=== PATIENT | female | born 1945 | race Two or more races ===

== ENCOUNTER → 2024-05-29 | Outpatient (CLI) | payer MEDICARE, SELFPAY ==
--- NOTE | 2024-05-29 11:20 | XR_ITS ---
Examination: Lumbar spine 5 views TECHNIQUE: AP, lateral, standing lateral flexion, standing lateral extension, coned lower lumbar spine lateral total 5 views Exam date and time: May 26, 2024 1140 hours INDICATIONS: Lower back pain months, radiating to the legs FINDINGS: Severe osteopenia Mild chronic osteoporotic compressions L2, L1 No acute lumbar fracture Diffuse moderate lumbar degenerative disc disease Marked reduced range of motion between flexion and extension No spondylolisthesis IMPRESSION: No acute lumbar fracture Moderate diffuse lumbar degenerative disc disease
== END | disposition home or self-care (01) ==
PROVIDERS: PCP Physician Assistant; Referring Provider Physical Medicine & Rehabilitation Pain Medicine; Visit Provider Physical Medicine & Rehabilitation Pain Medicine
DX: M51.369 Other intervertebral disc degeneration, lumbar region without mention of lumbar back pain or lower extremity pain (principal)
CPT/HCPCS: 72114

== ENCOUNTER → 2024-06-13 | Outpatient (CLI) | payer MEDICARE, SELFPAY ==
--- NOTE | 2024-06-13 12:30 | XR_ITS ---
Examination: MRI lumbar spine without contrast Date and time of exam: June 13, 2024 1320 hours Comparison August 24, 2021 INDICATIONS: Lower back pain radiating down both legs beginning 4 years ago, worse the last 20 years Technique: Multiple MRI axial and sagittal sections lumbar spine. Sagittal T2-weighted images, TR 3500, TE 118 T1 weighted transverse sections, TR 688 T8.5, T2-weighted sagittal sections T1 weighted sagittal sections TR 621, TE 30 T2 axial sections, TR 4, 190, TE 84. Findings: Chronic osteoporotic compressions L3, mild, L1 T12 moderate Diffuse lumbar disc desiccation No lumbar fracture Grade 1 anterolisthesis L5 on S1 L5-S1 3 mm central lumbar disc bulge L4-L5 5 mm central lumbar disc bulge L3-L4 no disc protrusion L2-L3 no disc protrusion L1-2 no disc protrusion IMPRESSION: L5-S1 3 mm central lumbar disc bulge L4-L5 5 mm central lumbar disc bulge
== END | disposition home or self-care (01) ==
LOC: SMRI 11:58
PROVIDERS: PCP Physician Assistant; Referring Provider Physical Medicine & Rehabilitation Pain Medicine; Visit Provider Physical Medicine & Rehabilitation Pain Medicine
DX: M51.369 Other intervertebral disc degeneration, lumbar region without mention of lumbar back pain or lower extremity pain (principal); M51.379 Other intervertebral disc degeneration, lumbosacral region without mention of lumbar back pain or lower extremity pain
CPT/HCPCS: 72148

== ENCOUNTER → 2024-07-26 | Outpatient (CLI) | payer MEDICARE, SELFPAY ==
--- NOTE | 2024-07-26 13:20 | XR_ITS ---
Examination: Bone densitometry Date and time of exam:July 26, 2024 1226 hours INDICATIONS: Hysterectomy age 31 vitamin D and calcium one year Technique: Lumbar spine and hip total bone mineralization values of an calculated. Peak reference and age match control results have been displayed. Findings: Lumbar spine total bone mineralization is1.060 gm/cm2. This is 0.1 standard deviations above peak reference. This is 2.8 standard deviations above age-matched controls. Hip total bone mineralization is 0.822 gm/cm2 This is 1.0 standard deviations below peak reference. This is 1.0 standard deviations above age-matched controls Impression: There is normal mineralization based on lumbar spine measurements. There is osteopenia based on hip measurements Lumbar mineralization is increased 5.5% compared with May 13, 2020 Hip mineralization is decreased 0.7% compared with May 13, 2020
== END | disposition home or self-care (01) ==
LOC: CDIM 11:45
PROVIDERS: Referring Provider Physician Assistant; Visit Provider Physician Assistant
DX: M85.89 Other specified disorders of bone density and structure, multiple sites (principal)
CPT/HCPCS: 77080

== ENCOUNTER 2024-11-17 13:43 | Emergency (ER) | payer MEDICARE, SELFPAY ==
[2024-11-17 13:44] VITALS: BMI 29.2
--- NOTE | 2024-11-17 13:47 | EKG_ITS ---
[facility] Test Date: 2024-11-17 Pat Name: SEVERIANO BLANKENSHIP Department: Room: - Gender: Female Pediatric Geneticist: : 1945 Requested By: ED Temporary Provider Order Number: [id number] Reading MD: ED Temporary Provider Measurements Intervals [place] Rate: 76 P: 40 UT: 142 QRS: 20 QRSD: 94 T: 19 QT: 291 QTc: 329 Interpretive Statements SINUS RHYTHM NONSPECIFIC T-WAVE ABNORMALITY Compared to ECG 12/28/2023 12:03:04 T-wave abnormality now present Sinus arrhythmia no longer present /store/S0/[id number]/ecg/[id number].pdf
[2024-11-17 13:56] VITALS: BP 130/76; PULSE 78; RESP 20; TEMP 37.4; O2SAT 97
--- NOTE | 2024-11-17 13:59 | XR_ITS ---
Examination: CT brain head without contrast. 2-D sagittal coronal reconstructions Date and time of exam:November 17, 2024 1400 hours INDICATION: Dizziness beginning last night COMPARISON: May 12, 2021 CTDI: vol (mGy):45.8 DLP: (mGycm):949 Technique: Multiple CT axial sections of the brain have been obtained, 5 mm slice thickness. Contrast has not been administered. 2-D sagittal, coronal reconstructions have been obtained Low dose protocols were performed. One or more of the following dose reduction techniques were used; automated exposure control, adjustment of the mA and/or KV according to patient size, use of iterative reconstruction technique. Findings: No significant ventricular enlargement. Intra-axial or extra-axial hemorrhage density is not seen. No mass effect or midline shift Basal cisterns are not remarkable. Fourth ventricle is midline. Cranial vault intact. Impression: Negative for acute hemorrhage, mass effect or midline shift Advise clinical correlation and follow up accordingly
--- NOTE | 2024-11-17 14:00 | EDRME_ITS ---
Rapid Medical Screening Exam [facility] Arrival date/time: 11/17/24 13:43 79-year-old female with positive sick contacts at home presents with concerns for headache, dizziness, weakness, nausea and vomiting Chief Complaint: Dizziness Vital signs: Vital Signs Temperature 99.3 F 11/17/24 13:56 Pulse Rate 78 11/17/24 13:56 Respiratory Rate 20 11/17/24 13:56 Blood Pressure 130/76 11/17/24 13:56 Pulse Oximetry (%) 97 11/17/24 13:56 Oxygen Delivery Method Room Air 11/17/24 13:56
[2024-11-17] MEDS: ONDANSETRON ODT 4 MG TABRAP PO (14:04)
[2024-11-17] MEDS: MECLIZINE HCL 25 MG TABLET PO (14:04)
[2024-11-17 14:23] LABS: Basophils # (Auto) 0.0 Thou/mm3 (0.0-0.2); Basophils % (Auto) 0 % (0-2.5); Eosinophils # (Auto) 0.0 Thou/mm3 (0.0-0.5); Eosinophils % (Auto) 0 % (0-10); Hematocrit 37.1 % (36.0-46.0); Hemoglobin 12.2 g/dL (12.0-16.0); Immature Granulocytes Auto 0.02 Thou/mm3 (0.00-0.00); Lymphocytes # (Auto) 0.8 Thou/mm3 (1.0-4.8); Lymphocytes % (Auto) 15 % (10-50); Mean Corpuscular HGB Conc 32.9 g/dl (31.0-37.0); Mean Corpuscular Hemoglobin 31.2 pg (25.0-35.0); Mean Corpuscular Volume 95 fL (80-100); Monocytes # (Auto) 0.2 Thou/mm3 (0.0-0.8); Monocytes % (Auto) 3 % (0-12); Neutrophils # (Auto) 4.3 Thou/mm3 (1.8-7.7); Neutrophils % (Auto) 81 % (37-80); Nucleated Red Blood Cell # 0.00 Thou/mm3 (0.00-0.00); Nucleated Red Blood Cell % 0 /100 WBC (0); Platelet Count 204 Thou/mm3 (140-440); RDW Standard Deviation 42.3 fL (36.4-46.3); Red Blood Count 3.91 Miln/mm3 (4.00-5.20); White Blood Count 5.3 Thou/mm3 (3.6-11.0)
[2024-11-17 14:49] LABS: Alanine Aminotransferase 12 U/L (10-49); Albumin, Serum 4.5 gm/dL (3.4-4.8); Albumin/Globulin Ratio 2.1 (1.2-2.2); Alkaline Phosphatase 43 U/L (46-116); Anion Gap 9 (7-16); Aspartate Amino Transferase 16 U/L (0-34); BUN/Creatinine Ratio 18 Ratio (12-20); Bilirubin,Total 0.7 mg/dL (0.3-1.2); Blood Urea Nitrogen 20 mg/dL (9-23); Calcium 10.1 mg/dL (8.3-10.6); Calcium (Corrected) 10.1 mg/dL (8.5-10.1); Carbon Dioxide 27.4 mMol/L (20.0-31.0); Chloride 108 mMol/L (98-107); Creatinine (Component) 1.1 mg/dL (0.6-1.3); Estimated Creatinine Clearance 45.6 mL/min (>60); Globulin 2.1 gm/dL (2.3-3.5); Glucose 101 mg/dL (74-106); Lipase 79 U/L (12-53); Osmolality,Calculated 289 (275-295); Potassium 4.5 mMol/L (3.4-5.1); Sodium 144 mMol/L (136-145); Total Protein 6.6 gm/dL (5.7-8.2); Troponin I < 0.020 ng/mL (0.0-0.045); eGFR 51 See Note
[2024-11-17 14:58] LABS: Collection Type, Urine Clean Catch
[2024-11-17 15:04] LABS: Bilirubin,Urine Negative (Negative); Blood,Urine Negative (Negative); Clarity,Urine Clear (Clear/Hazy); Color,Urine Lt-Yellow (Lt Yel-Yel); Glucose, Urine Negative (Negative); Ketones,Urine Negative (Negative); Leukocyte Esterase,Urine Positive (Negative); Nitrite,Urine Negative (Negative); PH,Urine 8.0 (5.0-7.0); Protein,Urine Negative (Neg - Trace); RBC,Urine 1 /hpf (0-3); Specific Gravity,Urine 1.018 (1.001-1.035); Squamous Epithelial Cell,Urine 2 /hpf (0-5); Urobilinogen,Urine Negative mg/dL (0.0-1.0); WBC,Urine 2 /hpf (0-5)
--- NOTE | 2024-11-17 15:08 | PD.EDDIZZY ---
ED Dizzyness RME/HPI General Chief Complaint: Dizziness Stated Complaint: DIZZY SINCE 0130, LKW AT 2230 Arrival date/time: 11/17/24 13:43 RME / HPI RME / HPI Narrative: 11/17/24 13:43 79-year-old female with positive sick contacts at home presents with concerns for headache, dizziness, weakness, nausea and vomiting DR. MARVIN MAIN ED EVALUATION 79 year old female with history of hypertension presents to the ED for evaluation of dizziness today. Described as room spinning sensation, accompanied by nausea and vomiting beginning at 01:30 AM. Additionally complains of nasal congestion. Reports she has had positive sick contacts, at home sick with nausea and vomiting. Denies fevers, chills, chest pain, cough, sore throat, shortness of breath, diarrhea, or urinary symptoms. Related Data Home Medications ?Medication ?Instructions ?Recorded ?Confirmed hydrochlorothiazide 25 mg tablet 25 mg PO QAM Diuretic #0 tabs 11/06/14 06/16/22 alprazolam 0.5 mg tablet,extended 0.5 mg PO HS 12/27/19 06/16/22 release 24 hr Held on 06/16/22. Instructions: Resume on 06/17/22. diclofenac sodium 50 mg 50 mg PO BID 04/20/21 06/16/22 tablet,delayed release duloxetine 60 mg capsule,delayed 60 mg PO QDAY 04/20/21 06/16/22 release sprinkle lisinopril 5 mg tablet 5 mg PO QDAY 04/20/21 06/16/22 Previous Rx's ?Medication ?Instructions ?Recorded omeprazole 40 mg capsule,delayed 40 mg PO BID 30 days #60 caps 06/16/22 release cyclobenzaprine 10 mg tablet 10 mg PO BID PRN muscle spasm #14 12/28/23 tabs dexamethasone 6 mg tablet 6 mg PO BID #14 tabs 12/28/23 meloxicam 15 mg tablet 15 mg PO QDAY #14 tabs 12/28/23 pantoprazole 40 mg tablet,delayed 40 mg PO QDAY #10 tabs 12/28/23 release (Protonix) ondansetron 4 mg disintegrating 4 mg PO Q8H PRN nausea and 11/17/24 tablet vomiting #7 tabs Allergies Allergy/AdvReac Type Severity Reaction Status Date / Time No Known Allergies Allergy Verified 11/17/24 13:46 Review of Systems Review of Systems Systems Reviewed: All systems reviewed, normal except as documented Past Medical History Past Medical History NEUROLOGIC: Positive Peripheral Neuropathy CARDIAC: Positive Cardiac Disorders, Hypertension and 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) RESPIRATORY: Positive Asthma (SEASONAL), Pneumonia (HOSP 1989) and Sleep Apnea (CPAP NOT USING DUE TO RECALL) GASTROINTESTINAL: Positive Gastrointestinal Disorders REPRODUCTIVE: Positive Previous Pregnancies (X1) MUSCULOSKELETAL: Positive Musculoskeletal Disorders and Arthritis ENT: Positive Cataracts (MERCEDES) OTHER HISTORY: Positive Hospitalization (HOSP FOR PNUEMONIA 1989), Shingles (2009), Chicken Pox, Measles and Mumps Family History FAMILY HISTORY: Positive Family Cardiac Disorders (father,brother (cva,CHOLESTEROL)), Family Gastrointestinal Problems (BROTHER (LIVER)), Family Cancer (MOTHER (KIDNEY,BLADDER),BROTHER (LIVER)) and Family Surgery (MOTHER,FATHER,SISTER) Surgical History SURGICAL: Positive Angiogram, Joint Replacement (MERCEDES KNEES- plastic ), Arthroscopy (MERCEDES) and Hysterectomy (MAGUE WITH MERCEDES SALPING) Social History SMOKING STATUS: Never smoker ED Exam Narrative Physical exam: GENERAL APPEARANCE:? alert and oriented x 4, well-developed, well-nourished, no acute distress HEENT: normocephalic, atraumatic NECK: supple LUNGS: no respiratory distress, normal effort HEART: good peripheral perfusion ABDOMEN: non distended EXTREMITIES:? atraumatic NEUROLOGIC: awake; alert and oriented x4; cranial nerves II-XII grossly intact PSYCHIATRIC:? appropriate mood and affect SKIN: warm, dry, normal color; no rashes Course Course Course Narrative: 1555: The head CT is negative. Labs show mildly elevated lipase otherwise no other significant abnormalities. The patient is positive for Flu A and B which is likely the cause of dizziness and n/v. Plan to discharge home with supportive care. Quality Measures none Orders Category Date Time Status Bedside COVID-19 Antigen Test NOW Care 11/17/24 13:59 Active Bedside Influenza A&B Antigen Test NOW Care 11/17/24 13:59 Completed EKG (ED ONLY) *Do not use* NOW Care 11/17/24 13:[address] head/brain wo con Stat Exams 11/17/24 13:59 Completed EKG (ED Only) Stat Exams 11/17/24 13:47 Draft CBC Stat Lab 11/17/24 14:07 Completed Comprehensive Metabolic Panel Stat Lab 11/17/24 14:07 Completed Lipase Stat Lab 11/17/24 14:07 Completed Troponin I Stat Lab 11/17/24 14:07 Completed Urinalysis Stat Lab 11/17/24 14:55 Completed Meclizine HCl [Antivert] Med 11/17/24 13:59 Discontinued 25 mg PO X1 ONE Ondansetron Odt [Zofran Odt] Med 11/17/24 13:59 Discontinued 4 mg PO X1 ONE Vital Signs Vital signs: Vital Signs Temperature 99.3 F 11/17/24 13:56 Pulse Rate 78 11/17/24 13:56 Respiratory Rate 20 11/17/24 13:56 Blood Pressure 130/76 11/17/24 13:56 Pulse Oximetry (%) 97 11/17/24 13:56 Oxygen Delivery Method Room Air 11/17/24 13:56 Pulse ox is 97% on room air which is adequate. Dizziness MDM Narrative MDM Narrative:: Ashley Gonzalez am scribing for and in the presence of Dr. Marvin. Patient data External records reviewed:: [facility] previous records (I reviewed ED Visit on 01/07/2024 ) Clinical information provided by:: patient Social determinants that could affect healthcare access:: none Patient has the following chronic illnesses:: Hypertension How is presenting disease/condition affected by chronic disease/condition?: uneffected by Evaluation data The following diagnostics were reviewed and interpreted by me:: lab results, radiology exam(s) and EKG tracing(s) Lab and/or radiology exams considered but not ordered:: None Interpretation Summary: Ordering Physician: Tegan CASTELAN)Yaniv NP Date of Service: 11/17/24 Procedure(s): CT head/brain wo con Accession Number(s): [id number] cc: Yaniv Javed NP, NP; Giovanni Arce MD; NO PRIMARY/FAMILY,PHYSICIAN~ Examination: CT brain head without contrast. 2-D sagittal coronal reconstructions Date and time of exam:November 17, 2024 1400 hours INDICATION: Dizziness beginning last night COMPARISON: May 12, 2021 CTDI: vol (mGy):45.8 DLP: (mGycm):949 Technique: Multiple CT axial sections of the brain have been obtained, 5 mm slice thickness. Contrast has not been administered. 2-D sagittal, coronal reconstructions have been obtained Low dose protocols were performed. One or more of the following dose reduction techniques were used; automated exposure control, adjustment of the mA and/or KV according to patient size, use of iterative reconstruction technique. Findings: No significant ventricular enlargement. Intra-axial or extra-axial hemorrhage density is not seen. No mass effect or midline shift Basal cisterns are not remarkable. Fourth ventricle is midline. Cranial vault intact. Impression: Negative for acute hemorrhage, mass effect or midline shift Advise clinical correlation and follow up accordingly Dictated By: Giovanni Arce MD Signed By: <Electronically signed by Gioavnni Arce MD in OV> 11/17/24 1507 Medications / Prescriptions Medications or Prescriptions considered but not ordered:: None Medication administrations:: Medication Administration History Discontinued Medications Meclizine HCl (Meclizine Hcl 25 Mg Tablet) 25 mg PO X1 ONE Stop: 11/17/24 14:00 Last Admin: 11/17/24 14:04 Dose: 25 mg Documented By: Ondansetron HCl (Ondansetron Odt 4 Mg Tabrap) 4 mg PO X1 ONE; Protocol Stop: 11/17/24 14:00 Last Admin: 11/17/24 14:04 Dose: 4 mg Documented By: See above Consultations Consultation(s) initiated? (list below): No Diagnosis Dizziness Differential Diagnosis: benign paroxysmal positional vertigo and other (viral illness, influenza ) Most likely diagnosis given after review of the tests above:: Influenza A and B Admission Indicated Admission indicated?: not indicated Admission Request Was there a request for admission?: No Disposition Plan Disposition Plan: Discharge Discharge Attestation Discharge Attestation: The patient and all family members were given an opportunity to ask questions and understood the discharge instructions. Discharge instructions specifically effects, indications for sooner follow up or return to the emergency department, and the expected course of current diagnosis. Patient condition: Stable Discharge Plan Plan Patient Disposition: HOME (Self Care) Patient condition on transfer: Stable Prescriptions/Referrals Prescriptions/Med Rec: New ondansetron 4 mg tablet,disintegrating 4 mg PO Q8H PRN (Reason: nausea and vomiting) Qty: 7 0RF No Action hydrochlorothiazide 25 MG tablet 25 mg PO QAM Qty: 0 alprazolam 0.5 mg Tablet Extended Release 24 Hr 0.5 mg PO HS lisinopril 5 mg tablet 5 mg PO QDAY diclofenac sodium 50 mg tablet,delayed release (DR/EC) 50 mg PO BID duloxetine 60 mg Capsule, Delayed Rel Sprinkle 60 mg PO QDAY meloxicam 15 mg tablet 15 mg PO QDAY Qty: 14 0RF dexamethasone 6 mg tablet 6 mg PO BID Qty: 14 0RF pantoprazole [Protonix] 40 mg tablet,delayed release (DR/EC) 40 mg PO QDAY Qty: 10 0RF cyclobenzaprine 10 mg tablet 10 mg PO BID PRN (Reason: muscle spasm) Qty: 14 0RF omeprazole 40 mg Capsule,Delayed Release(Dr/Ec) 40 mg PO BID 30 Days Qty: 60 1RF Referrals: No Primary/Family,Physician [Primary Care Provider] - In 1 week Problem List Clinical Impression: Influenza A, Influenza B Patient/Caregiver Discharge Instructions Other Activity Instructions:: Get some stratigraphy teacher sun daily for the next few days. Diet Instructions: Ensure plenty of fresh fruits, vegetables, healthy diet while ill, no junk food, no fast food, no sodas, avoid caffeine as well. Education Materials: The Flu (Influenza), ED Influenza (Adult) Additional Instructions: Return for any worsening symptoms Print Language: Arabic Stand Alone Forms: Kate Award Info., Patient Portal Info Letter
== END 2024-11-17 17:05 | disposition home or self-care (01) ==
PROVIDERS: Nurse Practitioner Primary Care; Emergency Provider Family Medicine
DX: J10.1 Influenza due to other identified influenza virus with other respiratory manifestations (principal); I10 Essential (primary) hypertension; G62.9 Polyneuropathy, unspecified; Z96.653 Presence of artificial knee joint, bilateral; Z90.710 Acquired absence of both cervix and uterus; Z79.899 Other long term (current) drug therapy
CPT/HCPCS: 36415; 70450; 80053; 81001; 83690; 84484; 85025; 87400; 87811; 93005; 99284; Q0162; A9270